=== PATIENT | female | born 1990 | race Caucasian/White ===

== ENCOUNTER 2025-02-24 13:34 | Outpatient (REF) | payer MEDICAID, SELFPAY ==
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
[2025-02-24 16:26] LABS: Alanine Aminotransferase 8 U/L (0-31); Albumin Level 4.3 g/dL (3.5-5.0); Alkaline Phosphatase 125 U/L (39-117); Aspartate Amino Transferase 14 U/L (5-31); Total Protein 7.3 g/dL (6.5-8.0)
--- OUTSIDE RECORDS SUMMARY | 2025-02-24 17:10 | XMS_ITS | Clinical Summary ---
Author Organization [employer] Address [address] [facility] 7t [place] [address] Care Team Providers Care Electric Motor Winders Assembler Name Role Phone Unavailable Primary Care Provider Unavailabl e Allergies Active Allergy Reactions Criticality Noted Date Comments Penicillins 12/31/2024 Shellfish Protein-Containing Drug Products 12/31/2024 Medications Buprenorphine HCl-Naloxone HCl (Suboxone) 8-2 MG SL filmIndication s:Uncomplicate d opioid dependence (CMS/HCC) ([facility]) Place 1 Film under the tongue 2 times daily for 7 days. 14 Film 02/22/20 25 025 Active traZODone (Desyrel) 50 MG tablet Take 50 mg by mouth at bedtime. Active QUEtiapine (SEROquel) 400 MG tablet Take 1 tablet (400 mg) by mouth at bedtime. 30 tablet 02/25/20 25 025 Active prazosin (Minipress) 2 MG capsule Take 1 capsule (2 mg) by mouth at bedtime. 30 capsule 02/25/20 25 026 Active norethindrone- ethinyl estradiol (Ortho-Novum, Nortrel) 1-35 MG-MCG tablet Take 1 tablet by mouth Once per day. 28 tablet 11 02/25/20 25 026 Active Buprenorphine HCl-Naloxone HCl (Suboxone) 8-2 MG SL filmIndication s:Uncomplicate d opioid dependence (CMS/HCC) (HCC) Place 1 Film under the tongue 2 times daily for 7 days. 14 Film 01/25/20 25 025 Discontinued(Re order (will not trigger notification to Pharmacy)) Buprenorphine HCl-Naloxone HCl (Suboxone) 8-2 MG SL filmIndication s:Uncomplicate d opioid dependence (CMS/HCC) (HCC) Place 1 Film under the tongue 2 times daily for 7 days. 14 Film 02/01/20 25 09/29/2 025 Discontinued(Re order (will not trigger notification to Pharmacy)) Buprenorphine HCl-Naloxone HCl (Suboxone) 8-2 MG SL filmIndication s:Uncomplicate d opioid dependence (CMS/HCC) (HCC) Place 1 Film under the tongue 2 times daily for 7 days. 14 Film 02/08/20 25 025 Discontinued(Re order (will not trigger notification to Pharmacy)) Buprenorphine HCl-Naloxone HCl (Suboxone) 8-2 MG SL filmIndication s:Uncomplicate d opioid dependence (CMS/HCC) (HCC) Place 1 Film under the tongue 2 times daily for 7 days. 14 Film 02/16/20 25 025 Discontinued(Re order (will not trigger notification to Pharmacy)) Active Problems Problem Noted Date Diagnosed Date Bipolar disorder 02/24/2025 Opioid use disorder 12/22/2024 Encounters Date Type Department Care Team Description 02/24/2025 2:45 PM EDT Office Visit [facility] [address] [place] [phone] Veronica Reyna MD Uncomplicated opioid dependence (CMS/HCC) (HCC) (Primary Dx); Bipolar affective disorder, remission status unspecified (CMS/HCC) (HCC); Encounter for surveillance of contraceptive pills 02/24/2025 Travel 02/18/2025 Refill [facility] [address] [place] [phone] Veronica Reyna MD Uncomplicated opioid dependence (CMS/HCC) (HCC) 02/17/2025 2:00 PM EDT Office Visit [address] [address] Veronica Reyna MD Opioid type dependence, continuous (CMS/HCC) (HCC) (Primary Dx) 02/17/2025 Patient Outreach [facility] [address] [place] [phone] Agapito Moreno Recovery Supports 02/17/2025 Travel 02/14/2025 2:30 PM EDT Office Visit [address] [address] Veronica Reyna MD Uncomplicated opioid dependence (CMS/HCC) (HCC) (Primary Dx) 02/14/2025 Refill [facility] [address] [place] [address] [place] [address] Veronica Reyna MD Uncomplicated opioid dependence (CMS/HCC) (HCC) 02/14/2025 Travel 02/11/2025 Population Health Risk Score [facility] ([facility]) [address] [phone] Provider, Population Health Generic 2025 Refill [facility] [address] [facility] [place] [address] Veronica Reyna MD Uncomplicated opioid dependence (CMS/HCC) 02/04/2025 4:00 PM EDT Clinical Support [facility] [place] [address] Tim Kang RN Uncomplicated opioid dependence (CMS/HCC) 02/04/2025 Travel 01/31/2025 Refill [facility] [place] [address] Veronica Reyna MD Uncomplicated opioid dependence (CMS/HCC) 01/28/2025 4:00 PM EDT Clinical Support [facility] [place] [address] Tim Kang RN Uncomplicated opioid dependence (CMS/HCC) 01/28/2025 Travel 01/24/2025 Refill [facility] [place] [address] Veronica Reyna MD Uncomplicated opioid dependence (CMS/HCC) 01/21/2025 3:00 PM EDT Clinical Support [facility] [place] [address] Tim Kang RN Uncomplicated opioid dependence (CMS/HCC) 01/21/2025 Travel 01/21/2025 Refill [facility] [place] [address] Tim Kang RN Uncomplicated opioid dependence (CMS/HCC) 01/07/2025 3:00 PM EDT Office Visit [facility] [place] [address] Nikita Hameed MD Uncomplicated opioid dependence (CMS/HCC) (Primary Dx) 01/07/2025 Travel 12/31/2024 1:00 PM EDT Office Visit [facility] [address] [place] [address] Dawn Gómez RN Uncomplicated opioid dependence (CMS/HCC) (Primary Dx) 12/31/2024 Patient Outreach [facility] [address] [place] [address] Brendan Collin Recovery Supports 12/31/2024 Travel 12/21/2024 Telephone [facility] [address] [place] [address] Dawn Gómez RN 12/14/2024 Telephone [facility] [address] [place] [address] Dawn Gómez RN 12/03/[address] [address] Dawn Gómez RN Appointment Request from Last 3 Months Social History Tobacco Use Types Packs/Day Years [...] Orientation Straight 12/31/2024 2: 16 PM EDT Last Filed Vital Signs Vital Sign Reading Time Taken Comments Blood Pressure 131/90 01/07/2025 3:25 PM EDT Pulse 94 01/07/2025 3:25 PM EDT Temperature 37.4 C (99.3 F) 01/07/2025 3:25 PM EDT Respiratory Rate 20 01/07/2025 3:25 PM EDT Oxygen Saturation - - Inhaled Oxygen Concentration - - Weight 61.2 kg (135 lb) 01/07/2025 3:25 PM EDT Height - - Body Mass Index - - Plan of Treatment Upcoming Encounters Date Type Department Care Team (Late st Contact Info) Description 03/03/2025 2:30 PM EDT Office Visit [facility] [address] [place] [phone] Veronica Reyna MD [address] [place] [phone] 03/10/2025 3:15 PM EDT Office Visit [facility] [address] [place] [address] Veronica Reyna MD [address] [place] [phone] Health Maintenance Due Date Last Done Comments HIV Screening 1989 Disability Screening 1989 Tobacco Screening 2001 Family Planning (PISQ) 02/08/2004 HPV Vaccines (1 - 3-dose series) 02/08/2004 Hepatitis C Screening 2007 DTaP/Tdap/Td Vaccines (1 - Tdap) 02/08/2008 Hepatitis B Vaccines (1 of 3 - 19+ 3-dose series) 02/08/2008 Pap Smear 2010 Cervical Cancer Screening 2019 HPV/Cotest 2019 COVID-19 Vaccine (1 - 2023-2 5 season) 2025 Influenza Vaccine (#1) 2025 Alcohol/Substance Use Screening 02/24/2026 02/24/2025 Depression Screening 02/24/2026 02/24/2025, 02/24/2025 SDOH Screening 02/24/2026 02/24/2025 Zoster Vaccines (1 of 2) 2039 RSV Patients and Patients Aged 60 years or older (1 - 1-dose 75+ series) 02/08/2064 HIB Vaccines Aged Out No longer eligi ble based on patient's age to complete this topic Hepatitis A Vaccines Aged Out No long er eligible based on patient's age to complete this topic IPV Vaccines Aged Out No longer eligi ble based on patient's age to complete this topic Meningococcal B Vaccine Aged Out No l onger eligible based on patient's age to complete this topic Meningococcal Vaccine Aged Out No yajaira mickie eligible based on patient's age to complete this topic Pneumococcal Vaccine: Pediatrics (0 to 5 Years) and At-Risk Patients (6 to 49) Years Aged Out No longer eligible b ased on patient's age to complete this topic RSV under 20 months Aged Out No longe r eligible based on patient's age to complete this topic Rotavirus Vaccines Aged Out No longer eligible based on patient's age to complete this topic Procedures Procedure Name Priority Date/Time Associated Diagnosis Comments HEPATIC FUNCTION PANEL Routine 02/24/2025 1:44 PM EDT Uncomplicated opioid dependence (CMS/HCC) (HCC) POCT , URINE Routine 02/24/2025 1:42 PM EDT Uncomplicated opioid dependence (CMS/HCC) (HCC) POCT TIMUR-14 URINE DRUG SCREEN Routine 02/24/2025 1:40 PM EDT Uncomplicated opioid dependence (CMS/HCC) (HCC) POCT TIMUR-14 URINE DRUG SCREEN Routine 02/17/2025 2:08 PM EDT Opioid type dependence, continuous (CMS/HCC) (HCC) POCT TIMUR-14 URINE DRUG SCREEN Routine 02/14/2025 1:56 PM EDT Uncomplicated opioid dependence (CMS/HCC) (HCC) POCT TIMUR-14 URINE DRUG SCREEN Routine 02/04/2025 4:17 PM EDT Uncomplicated opioid dependence (CMS/HCC) POCT TIMUR-14 URINE DRUG SCREEN Routine 01/28/2025 4:31 PM EDT Uncomplicated opioid dependence (CMS/HCC) POCT TIMUR-14 URINE DRUG SCREEN Routine 01/21/2025 3:58 PM EDT Uncomplicated opioid dependence (CMS/HCC) POCT TIMUR-14 URINE DRUG SCREEN Routine 01/07/2025 3:12 PM EDT Uncomplicated opioid dependence (CMS/HCC) from Last 3 Months Results * (ABNORMAL) Hepatic Function Panel (02/24/2025 1:44 PM EDT) Bilirubin, Total 0.2 0.0 - 1.0 mg/dL [facility] Bilirubin, Direct <0.2 0.0 - 0.5 mg/dL [facility] Aspartate Amino Transferase 14 5 - 31 U/L [facility] Alanine Aminotransferase 8 0 - 31 U/L [facility] Total Protein 7.3 6.5 - 8.0 g/dL [facility] Albumin Level 4.3 3.5 - 5.0 g/dL [facility] Alkaline Phosphatase 125(H) 39 - 117 U/L [facility] Blood Venous blood specimen / Unknown 02/24/2025 1:44 PM EDT 02/24/2025 3:56 PM EDT us Nikita Hameed MD LAB BLOOD ORDERABLES Final Resul t [facility] [address] [place] [address] [phone] * POCT , urine manually resulted (02/24/2025 1:42 PM EDT) Preg Test, Ur Negative Negative, Indeterminate, None Detected, Invalid, Specimen unsatisfactory for evaluation, Weakly Positive, 2+ QC Media Lot # [id number] Lot# Expiration Date Urine 02/24/2025 1:42 PM EDT Veronica Reyna MD POINT OF CARE TEST ENTER/REESE T ORDERABLES Final Result * (ABNORMAL) POCT TIMUR-14 Urine Drug Screen (02/24/2025 1:40 PM EDT) Only the most recent of7 resultswithin the time period is included. THC Negative Negative Cocaine Screen, Urine Negative [...] procedure / Unknown 02/24/2025 1:40 PM EDT Veronica Reyna MD POINT OF CARE TEST ENTER/REESE T ORDERABLES Final Result from Last 3 Months Insurance [facility] C3
--- OUTSIDE RECORDS SUMMARY | 2025-02-24 17:10 | XMS_ITS | Encounter Summary ---
Author Organization [employer] Address [address] [facility] 7 [place] [address] Care Team Providers Care Clinical Appeals Rn Name Role Phone Unavailable Primary Care Provider Unavailabl e Reason for Visit * Reason Onset Date Comments Med Refill 02/18/2025 Encounter Details Date Type Department Care Team (Late st Contact Info) Description 02/18/2025 Refill [facility] [address] [place] [phone] Veronica Reyna MD [address] [place] [phone] Uncomplicated opioid dependence (CMS/HCC) (HCC) Social History Tobacco Use Types Packs/Day Years Used Date Smoking Tobacco: Never Assessed Comments Unknown Sex and Gender Information Value Date Recorded Sex Assigned at Female 12/31/2024 2:16 PM EDT Legal Sex Female 10:32 AM EDT Gender Identity Female 12/31/2024 2:16 PM EDT Sexual Orientation Straight 12/31/2024 2: 16 PM EDT documented as of this encounter Plan of Treatment Upcoming Encounters Date Type Department Care Team (Late st Contact Info) Description 03/03/2025 2:30 PM EDT Office Visit [facility] [address] [place] [phone] Veronica Reyna MD [address] [place] [phone] 03/10/2025 3:15 PM EDT Office Visit [facility] [address] [place] [phone] Veronica Reyna MD [address] [place] [address] documented as of this encounter Visit Diagnoses Diagnosis Uncomplicated opioid dependence (CMS/HCC) (HCC) documented in this encounter
--- OUTSIDE RECORDS SUMMARY | 2025-02-24 17:10 | XMS_ITS | Encounter Summary ---
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 Name Role Phone Unavailable Primary Care Provider Unavailabl e Encounter Details Date Type Department Care Team (Latest Contact Info) Description 02/24/2025 Travel Social History Tobacco Use Types Packs/Day Years [...] of Assessment Author 2 02/24/2025 1:51 PM EDT Coni Arana [place] documented as of this encounter Plan of Treatment Upcoming Encounters Date Type Department Care Team (Late st Contact Info) Description 03/03/2025 2:30 PM EDT Office Visit [facility] [address] [facility] [place] [address] Veronica Reyna MD [address] [place] [address] 03/10/2025 3:15 PM EDT Office Visit [facility] [address] [facility] [place] [address] Veronica Reyna MD [address] [place] [address] documented as of this encounter Visit Diagnoses Not on filedocumented in this encounter Additional Health Concerns Assessment Noted Time PHQ-9 Depression Total Score: 2 02/25/20 25 1:51 PM EDT documented as of this encounter
[2025-02-25 03:17] LABS: Syphilis Screen Nonreactive (Nonreactive)
[2025-02-25 03:28] LABS: HBS Num1 > 1000.00 mIU/mL (0-7.99); HBc Num1 0.12 S/CO (0.00-0.79); HBsAGNum1 0.66 S/CO (0.00-0.99); HIV Num 1 0.06 S/CO (0.00-0.99); Hepatitis B Surface Antigen Negative (Negative); ~HepC Num1 4.49 S/CO (0.00-0.79); ~Hepatitis B Surface Antibody REACTIVE (Nonreactive); ~Hepatitis C Antibody Reactive (Nonreactive)
[2025-02-25 03:40] LABS: ~Hepatitis A Antibody IgG 10.62 S/CO (0.00-0.99)
[2025-02-26 19:37] LABS: TS Negative Control Passed; TS Panel A 0; TS Panel B 0; TS Positive Control Passed; TSpotTB Negative (Negative)
[2025-02-28 20:33] LABS: HCV Log PCR <1.18 NOT DETECTED Log IU/mL (NOT DETECTED); HepC Viral Load <15 NOT DETECTED IU/mL (NOT DETECTED)
== END 2025-02-24 13:35 | disposition home or self-care (01) ==
LOC: HO.HHCL 13:34
PROVIDERS: Visit Provider Family Medicine
DX: Z11.1 Encounter for screening for respiratory tuberculosis (principal); Z11.59 Encounter for screening for other viral diseases; Z11.4 Encounter for screening for human immunodeficiency virus [HIV]; F11.20 Opioid dependence, uncomplicated
CPT/HCPCS: 36415; 80076; 86481; 86704; 86706; 86708; 86780; 86803; 87340; 87389; 87522